=== PATIENT | female | born 2000 | race Caucasian/White ===

== ENCOUNTER 2023-07-12 16:03 | Emergency (ER) | payer SELFPAY ==
[~2023-07-12] VITALS: Ht 160 cm; Wt 95.3 kg
[2023-07-12] MEDS ORDERED: OXYCODONE/APAP 5-325 MG TABLET ONE (16:38)
[2023-07-12] MEDS: OXYCODONE/APAP 5-325 MG TABLET PO ONE (16:41)
[2023-07-12] MEDS: PROPOFOL 200 MG/20 ML BOTTLE IV ONE (17:15)
[2023-07-12] MEDS ORDERED: PROPOFOL 200 MG/20 ML BOTTLE ONE (17:17)
[2023-07-12] MEDS ORDERED: HYDR-3976 PO (18:08)
[2023-07-12] MEDS ORDERED: KETOROLAC TROMETHAMINE 15 MG INJ ONE (18:13)
[2023-07-12 18:21] VITALS: O2SAT 98
[2023-07-12] MEDS: KETOROLAC TROMETHAMINE 15 MG INJ IVP ONE (18:44)
== END 2023-07-12 19:25 | disposition home or self-care (01) ==
LOC: ER 16:03
DX: S43.085A Other dislocation of left shoulder joint, initial encounter (principal); S63.592A Other specified sprain of left wrist, initial encounter; Z79.899 Other long term (current) drug therapy; W18.39XA Other fall on same level, initial encounter; Y93.89 Activity, other specified; Y92.89 Other specified places as the place of occurrence of the external cause; Y99.8 Other external cause status
CPT/HCPCS: 73020; 73110; A4606; A4663; G0500; J1885; J3490